=== PATIENT | male | born 1985 | race Caucasian/White ===

== ENCOUNTER 2022-10-29 16:11 | Outpatient (CLI) | payer OTHER, SELFPAY ==
--- NOTE | 2022-10-29 16:27 | XRR_ITS ---
PROCEDURE INFORMATION: Exam: XR Right Toe(s) Exam date and time: 10/29/2022 4:27 PM Age: 37 years old Clinical indication: Pain; Foot; Right; Additional info: Injury of right toe, initial encounter, pain TECHNIQUE: Imaging protocol: Radiologic exam of the Right toes. Views: Minimum 2 views. COMPARISON: No relevant prior studies available. FINDINGS: Bones/joints: Mild hallux valgus with a metatarsophalangeal joint angle of 26 degrees with mild 1st metatarsophalangeal joint osteoarthritis. Soft tissues: Normal. XR/XR toe RT min 2V [id number] IMPRESSION: 1. Negative for fracture or dislocation 2. Mild hallux valgus with a metatarsophalangeal joint angle of 26 degrees with mild 1st metatarsophalangeal joint osteoarthritis.
== END 2022-10-29 16:12 | disposition home or self-care (01) ==
PROVIDERS: PCP Nurse Practitioner Family; Visit Provider Nurse Practitioner Family
DX: S99.921A Unspecified injury of right foot, initial encounter (principal); X58.XXXA Exposure to other specified factors, initial encounter; M20.11 Hallux valgus (acquired), right foot
CPT/HCPCS: 73660

== ENCOUNTER 2025-05-13 23:27 | Emergency (ER) | payer OTHER, SELFPAY ==
--- OUTSIDE RECORDS SUMMARY | 2025-05-13 23:38 | XMS_ITS | Continuity of Care Document ---
Author Name [facility] Organization [facility] Care Team Providers Care Video Tape Editor Name Role Phone [facility] Unavailable Unavailable Problems Combined list of problems from Department of Defense and Veterans Affairs facilities. It does not include entries that were removed or entered in error. Problem Status Onset Date Problem Type Date of Resolution Comments Source visit for: single organ system exam psychiatric Active Condition DoD joint pain, localized in the knee Active Condition DoD groin (inguinal) pain left side Inactive Condition DoD DEPRESSION Active Condition ; rule ou t adjustment disorder; further discussion with SM reveals a possible link between arrival to [facility], current conflicts with peers, onset of nightmares, and worsening of depressiion which all began about one month ago. SM is able to relax by listening to music; he doesn;t want medications for sleep or mood since in [facility] and has to respond to commands at short notice. SM mainly benefits from reassurance about family concerns. he denies SI or HI; will arrange follow up with spec(91X) for supportive counseling, coping skills, and relaxation; call prn;he is not a safety risk. DoD SUPERFICIAL INJURY - NONVENOMOUS INSECT BITE OF HAND Inactive Condition ATARAX/PRE 10 MG 6DAY DoD CELLULITIS Active Condition DoD SKIN ABSCESS OF THE LEFT HAND Active Condition PT HAD SMALL SCAB ON THE TOP. OPENED THIS UP AND DRAINED A SMALL AMOUNT OF PUS. DoD Vaccines Prophylactic Need Inactive Condition DoD Vaccines Prophylactic Need Against Viral Diseases Active Condition DoD Vaccines Prophylactic Need Against Combinations Of Diseases Inactive Condition DoD Vaccines Prophylactic Need Against Bacterial Diseases Inactive Condition DoD visit for: services physical accession Inactive Condition DoD REFRACTIVE ERROR Active Condition DoD Allergies, Adverse Reactions, Alerts Combined list of allergies from Department of Defense and Veterans Affairs facilities. It does not include entries that were removed or entered in error. Substance Category Reaction Severity Reaction type Status Date Reported Comments Source NO OUTPUT FOR NCID [id number] Drug allergy (disorder) active 12/15/2006 [facility] Encounters Combined list of: 1) Encounters from Department of Veterans Affairs facilities going backup to the last 18 months, not all VA inpatient encounters are included; 2) Encounters from the Department of Defense facilities going backup to 280 months. Location Location Details Encounter Type Encounter Number Reason For Visit Attending Provider ADM Date DC Date Status Disposition Source [facility]) OUTPATIENT [id number] RONNIE BARAHONA Carmencita 07/29 Released w/o Limitations [facility]caiel nee) [facility] Post Immunizat ion) OUTPATIENT [id number] [facility] IMMUNIZ ATIONS GABYGABINOROMA STUART 07/31 Released w/o Limitations [facility] Post Immuniz ation) [facility] Immediate Care Clinic) OUTPATIENT [id number] 21 yo. pt. l hand NESTOR Faustin 10/27 Released w/o Limitations [facility] Immedia te Care [facility]) [facility] Immediate [facility]) OUTPATIENT [id number] 21yo,M, SIT,c/o ,left hand kmin g x2days CHRISTIANO SEGOVIA 10/27 Sick at Home/Quarter s [facility] Im[facility]) [facility]) OUTPATIENT [id number] knee /groin pain [place] 12/01 Released w/o Limitations [facility]) [facility] h([facility]) OUTPATIENT [id number] f/u left knee pain [place] O 12/09 Released with Work/Duty Limitations [facility]) Procedures Combined list of: 1) Procedures from Department of Veterans Affairs facilities going back up to thelast 18 months, not all VA non-surgical procedures are included; 2) All procedures from the Department of Defense facilities. Procedure Procedure Type Code Date Perfomer Comments Sour e Psychiatric Therapy Individual Approximately 45-50 Minutes Psychiatric Therapy Individual Approximately 45-50 Minutes [id number] 7 ARIELLE ABBOTT [facility] Psychiatric Evaluation Comprehensive Examination Psychiatric Evaluation Comprehensive Examination [id number] 7 MELISSA BHATIA [facility] Supervised Injection Intramuscular Supervised Injection Intramuscular 47947 7 CHRISTIANO SEGOVIA ROCEPHE 1000MG IM, given by ek @1905 hrs.pt,marily savage verifed x2 DoD Slings 7 CHRISTIANO SEGOVIA LEFT ARM [facility] Tdap Vaccine Tdap Vaccine 25506 6 [facility] Immunization Administration Each Additional Vaccine 6 [facility] Meningococcal Polysaccharide Vaccine (Active) Meningococcal Polysaccharide Vaccine (Active) 24610 6 [facility] Vaccines Viral Polio, Inactivated (Salk) Vaccines Viral Polio, Inactivated (Salk) 53845 6 [facility] Hepatitis A And Hepatitis B (Intramuscular Use) Adult Dosage Hepatitis A And Hepatitis B (Intramuscular Use) Adult Dosage 03607 6 [facility] Immunization Administration One Vaccine Immunization Administration One Vaccine 81827 6 [facility] Screening Test Of Visual Acuity, Quantitative, Bilateral Screening Test Of Visual Acuity, Quantitative, Bilateral 28097 6 RONNIE BARAHONA [facility] Determination Of Refractive State Determination Of Refractive State 12788 6 KATIE GRIGGS [facility] Spectacles Services Fitting Monofocals (Not For Aphakia) [facility] Fitting Monofocals (Not For Aphakia) 94078 6 KATIE GRIGGS [facility] INJECTION, CEFTRIAXONE SODIUM, PER 250 MG 7 [facility] HEPATITIS A AND HEPATITIS B VACCINE (HEPA-HEPB), ADULT DOSAGE, FOR INTRAMUSCULAR USE 6 [facility] SCREENING TEST OF VISUAL ACUITY, QUANTITATIVE, BILATERAL 6 [facility] INDIVIDUAL PSYCHOTHERAPY, INSIGHT ORIENTED, BEHAVIOR MODIFYING AND/OR SUPPORTIVE, IN AN OFFICE OR OUTPATIENT FACILITY, APPROXIMATELY 45 TO 50 MINUTES [id number] WITH THE PATIENT 7 [facility] PSYCHIATRIC DIAGNOSTIC INTERVIEW EXAMINATION 7 [facility] Social History Combined list of available smoking, tobacco, and other social history from Department of Defense and Veterans Affairs facilities. Social History Type Response Date Comment Sour e This section is an empty social history section. [facility]
--- OUTSIDE RECORDS SUMMARY | 2025-05-13 23:39 | XMS_ITS | Clinical Summary ---
Author Organization [facility] Address [address] [place] [address] Care Team Providers Care Sack Department Supervisor Name Role Phone Snehal Villa Primary Care Provider Allergies No known active allergies Medications blood sugar diagnostic StripIndications:T ype 2 diabetes mellitus without complication, without long-term current use of insulin ([facility]) Use to check blood sugar daily as needed 100 Each 3 02/23/20 24 Active Blood-Glucose MeterIndications:T ype 2 diabetes mellitus without complication, without long-term current use of insulin ([facility]) Use to check blood sugar daily as needed 1 Each 02/23/20 24 Active OneTouch Delica Plus Lancet 30 gauge Use to check blood sugar daily as needed 02/23/20 24 Active cholecalciferol, Vitamin D3, 50 mcg (2,000 unit) TabletIndications: Vitamin D deficiency Take 1 Tablet (2,000 Units) by mouth daily. 90 Tablet 3 02/25/20 24 Active Additional Information Patient not taking.Reported on 02/23/2025 semaglutide (Ozempic) 1 mg/dose (4 mg/3 mL) Pen InjectorIndication s:Type 2 diabetes mellitus without complication, without long-term current use of insulin ([facility]) Inject 1 mg by subcutaneous injection every 7 days. 9 mL 3 02/24/20 25 Active simvastatin (ZOCOR) 20 mg tabletIndications: Mixed hyperlipidemia Take 1 Tablet (20 mg) by mouth daily at bedtime. 100 Tablet 3 02/24/20 25 Active Active Problems Problem Noted Date Diagnosed Date Other fatigue 02/23/2025 ANGELI (obstructive sleep apnea) 02/23/2025 Severe episode of recurrent major depressive disorder, without psychotic features 02/23/2025 BESSY (generalized anxiety disorder) 02/23/2025 Eczema 05/25/2024 Mixed hyperlipidemia 10/29/2022 Type 2 diabetes mellitus wit hout complication, without long-term current use of insulin 10/29/2022 Vitamin D deficiency 10/29/2022 Morbid obesity with body mass index (BMI) of 40. 0 or higher 10/28/2022 Encounters Date Type Department Care Team Description 04/26/2025 External Device Data [facility]STRACTION Provider, Abstract 04/25/2025 External Device Data [facility] Provider, Abstract 03/28/2025 External Device Data [facility] Provider, Abstract 03/14/2025 External Device Data [facility]STRACTION Provider, Abstract 03/07/2025 External Device Data [facility] ABSTRACTION Provider, Abstract 03/01/2025 Orders Only [facility] [address] [place] [address] David Sawant FNP Morbid obesity with body mass index (BMI) of 40.0 or higher ([facility]) (Primary Dx); Other fatigue; ANGELI (obstructive sleep apnea) 02/27/2025 Results Follow-Up [facility] [address] [place] [address] David Sawant FNP HEMOGLOBIN A1C, CBC WITH DIFFERENTIAL, COMPREHENSIVE METABOLIC PANEL, Additional followed-up results: 7 02/23/2025 11:40 AM CDT Office Visit [facility] [address] [place] [address] David Sawant FNP Mixed hyperlipidemia (Primary Dx); Morbid obesity with body mass index (BMI) of 40.0 or higher ([facility]/HCC); Type 2 diabetes mellitus without complication, without long-term current use of insulin ([facility]); Vitamin D deficiency; Excessive sweating; Other fatigue; ANGELI (obstructive sleep apnea); Severe episode of recurrent major depressive disorder, without psychotic features (CMS/HCC); BESSY (generalized anxiety disorder) from Last 3 Months Social History Tobacco Use Types Packs/Day Years Used Date Smoking Tobacco: Never Smokeless Tobacco: Never Tobacco Cessation:Counseling Given: Not Answered Alcohol Use Standard Drinks/Week Comments Never 0 (1 standard drink = 0.6 oz pur e alcohol) Sex and Gender Information Value Date Recorded Sex Assigned at Not on file Legal Sex Male 8:11 AM CDT Gender Identity Not on file Sexual Orientation Not on file Last Filed Vital Signs Vital Sign Reading Time Taken Comments Blood Pressure 138/78 02/23/2025 11:31 AM CDT Pulse 90 02/23/2025 11:57 AM CDT Temperature 36.8 C (98.2 F) 02/23/2025 11:31 AM CDT Respiratory Rate 18 02/23/2025 11:31 AM CDT Oxygen Saturation 96% 02/23/2025 11:31 AM CDT Inhaled Oxygen Concentration - - Weight 123.8 kg (273 lb) 02/23/2025 11:31 AM CDT Height 175.3 cm (5' 9 ) 02/23/2025 11:31 AM CDT Body Mass Index 40.32 02/23/2025 11:31 AM CDT Plan of Treatment Health Maintenance Due Date Last Done Comments HPV VACCINES (1 - Male 3-dos e series) 1998 DIABETES ANNUAL FOOT EXAM 2001 DIABETES ANNUAL RETINAL EXAM 2001 DTAP/TDAP/TD VACCINES (1 - Tdap) 2002 HEPATITIS B VACCINES (1 of 3 - 19+ 3-dose series) 2002 COVID-19 Vaccine (3 - 2023-2 5 season) 2024 05/31/2021, 05/10/2021 Preventative Visit- Commercial 10/12/2024 10/28/2022 INFLUENZA VACCINE (#1) 2025 DIABETES HBA1C Q 6 MONTHS 08/26/20252024, 05/25/2024, 02/23/2024, Additional history exists DIABETES MICROALBUMIN ANNUAL SCREEN 02/23/2026 02/23/2025, 02/23/2024 DIABETES: A1C (Auto Order) 02/23/202602/23, 05/25/2024, 02/23/2024, Additional history exists LDL CHOLESTEROL ANNUAL 02/23/2026 , 05/25/2024, 02/23/2024, Additional history exists Procedures Procedure Name Priority Date/Time Associated Diagnosis Comments MICROALBUMIN/CREATININ E RATIO, RANDOM UR Routine 02/23/2025 3:15 PM CDT Type 2 diabetes mellitus without complication, without long-term current use of insulin (CMS/HCC) IRON, TIBC, AND PERCENT SATURATION Routine 02/23/2025 12:08 PM CDT Other fatigue VITAMIN B12 AND FOLATE Routine 12:08 PM CDT Other fatigue TESTOSTERONE FREE AND TOTAL Routine 02/23/2025 12:08 PM CDT Morbid obesity with body mass index (BMI) of 40.0 or higher (CMS/HCC) Excessive sweating Other fatigue VITAMIN D 25 HYDROXY Routine 02/23/2025 12:08 PM CDT Morbid obesity with body mass index (BMI) of 40.0 or higher (CMS/HCC) Vitamin D deficiency Excessive sweating Other fatigue LIPID PANEL Routine 02/23/2025 12:08 PM CDT Morbid obesity with body mass index (BMI) of 40.0 or higher (CMS/HCC) Type 2 diabetes mellitus without complication, without long-term current use of insulin (CMS/HCC) Mixed hyperlipidemia Other fatigue TSH Routine 02/23/2025 12:08 PM CDT Morbid obesity with body mass index (BMI) of 40.0 or higher (CMS/HCC) Type 2 diabetes mellitus without complication, without long-term current use of insulin (CMS/HCC) Mixed hyperlipidemia Excessive sweating Other fatigue COMPREHENSIVE METABOLIC PANEL Routine 02/23/2025 12:08 PM CDT Morbid obesity with body mass index (BMI) of 40.0 or higher (CMS/HCC) Type 2 diabetes mellitus without complication, without long-term current use of insulin (CMS/HCC) Mixed hyperlipidemia Excessive sweating Other fatigue CBC WITH DIFFERENTIAL Routine 02/23/2025 12:08 PM CDT Morbid obesity with body mass index (BMI) of 40.0 or higher (CMS/HCC) Type 2 diabetes mellitus without complication, without long-term current use of insulin (CMS/HCC) Mixed hyperlipidemia Excessive sweating Other fatigue HEMOGLOBIN A1C Routine 02/23/2025 12:08 PM CDT Morbid obesity with body mass index (BMI) of 40.0 or higher (CMS/HCC) Type 2 diabetes mellitus without complication, without long-term current use of insulin (CMS/HCC) Excessive sweating Other fatigue from Last 3 Months Results * (ABNORMAL) MICROALBUMIN/CREATININE RATIO, RANDOM UR (02/23/2025 3:15 PM CDT) CREATININE, URINE 468(H) 20 - 320 mg/dL [facility] Comment: Verified by repeat analysis. ALBUMIN, URINE 12.1 See Note: mg/dL [facility] Comment: Reference Range: Reference Range Not established ALB/CREAT RATIO, URINE 26 <30 mg/g creat [facility] Comment: The ADA defines abnormalities in albumin excretion as follows: Albuminuria Category Result (mg/g creatinine) Normal to Mildly increased <30 Moderately increased 30-299 Severely increased > OR = 300 The ADA recommends that at least two of three specimens collected within a 3-6 month period be abnormal before considering a patient to be within a diagnostic category. FASTING:UNKNOWN FASTING: UNKNOWN Test Performed at: [facility] [address] [place] [address] Tristan York MD Urine URINE SPECIMEN OBTAINED BY CLEAN CATCH PROCEDURE / Unknown 02/23/2025 3:15 PM CDT 02/24/2025 2:08 AM CDT us David Sawant DRIER TRANSFER CAR OPERATOR URINE ORDERABLES Final Res ult [facility] [phone] [facility] [address] [place] [address] * TESTOSTERONE FREE AND TOTAL (02/23/2025 12:08 PM CDT) Pathologist [facility] TESTOSTERONE 386 250 - 1100 ng/dL [facility] Comment: Men with clinically significant hypogonadal symptoms and testosterone values repeatedly in the range of the 200-300 ng/dL or less, may benefit from testosterone treatment after adequate risk and benefits counseling. For additional information, please refer to https://education.[employer]/faq/KXW656 (This link is being provided for informational/educational purposes only.) (Note) This test was developed and its analytical performance characteristics have been determined by [facility]. It has not been cleared or approved by the FDA. This assay has been validated pursuant to the CLIA regulations and is used for clinical purposes. TESTOSTERONE FREE 64.5 35.0 - 155.0 pg/mL [facility] Comment: (Note) This test was developed and its analytical performance characteristics have been determined by [facility]. It has not been cleared or approved by the FDA. This assay has been validated pursuant to the CLIA regulations and is used for clinical purposes. [facility] [address] [place] [address],[address] [place] [address] Candelaria Nunez MD, PhD FASTING:UNKNOWN FASTING: UNKNOWN Test Performed at: [facility] [address] [place] [address], [address] [place] [phone] Candelaria Nunez MD,PhD Blood 02/23/2025 12:0 8 PM CDT 02/23/2025 12:08 PM CDT David Sawant DRIER TRANSFER CAR OPERATOR CHEMISTRY ORDERABLES Final Result [facility] [phone] [facility] [employer] [address] [place] [address], [address] [place] [address] * VITAMIN B12 AND FOLATE (02/23/2025 12:08 PM CDT) Pathologist [facility] VITAMIN B12 577 200 - 1100 pg/mL [facility] FOLATE, SERUM 11.7 ng/mL [facility] Comment: Reference Range Low: <3.4 Borderline: 3.4-5.4 Normal: >5.4 FASTING:UNKNOWN FASTING: UNKNOWN Test Performed at: [facility] [address] [place] [address] MiriamRosalva York MD Blood 02/23/2025 12:0 8 PM CDT 02/23/2025 12:08 PM CDT David Pierson Sawant [facility] CHEMISTRY ORDERABLES Final Result Performing Organization Address [facility]/ZIP Co de Phone Number [facility] [phone] [facility] [address] [place] [address] * IRON, TIBC, AND PERCENT SATURATION (02/23/2025 12:08 PM CDT) Pathologist [facility] IRON 137 50 - 180 mcg/dL [facility] TIBC 357 250 - 425 mcg/dL (calc) [facility] IRON % SATURATION 38 20 - 48 % (calc) [facility] Comment: Test Performed at: [facility] [address] Tristan York MD Blood 02/23/2025 12:0 8 PM CDT 02/23/2025 12:08 PM CDT David Sawant [facility] CHEMISTRY ORDERABLES Final Result Performing Organization Address [facility] Co de Phone Number [facility] [phone] [facility] [address] [place] [phone] * (ABNORMAL) CBC WITH DIFFERENTIAL (02/23/2025 12:08 PM CDT) WBC 8.0 3.8 - 10.8 Thousand/u L [facility] RBC 6.08(H) 4.20 - 5.80 Million/uL [facility] HEMOGLOBIN 17.9(H) 13.2 - 17.1 g/dL [facility] HEMATOCRIT 55.1(H) 38.5 - 50.0 % [facility] MCV 90.6 80.0 - 100.0 fL [facility] MCH 29.4 27.0 - 33.0 pg [facility] MCHC 32.5 32.0 - 36.0 g/dL [facility] Comment: For adults, a slight decrease in the calculated MCHC value (in the range of 30 to 32 g/dL) is most likely not clinically significant; however, it should be interpreted with caution in correlation with other red cell parameters and the patient's clinical condition. RDW 14.3 11.0 - 15.0 % [facility] PLATELETS 263 140 - 400 Thousand/u L [facility] MPV 11.9 7.5 - 12.5 fL [facility] NEUTROPHIL ABSOLUTE 4,968 1,500 - 7,800 cells/uL [facility] LYMPHOCYTE ABSOLUTE 2,280 850 - 3,900 cells/uL [facility] MONOCYTE ABSOLUTE 464 200 - 950 cells/uL [facility] EOSINOPHIL ABSOLUTE 224 15 - 500 cells/uL [facility] BASOPHILS ABSOLUTE 64 0 - 200 cells/uL [facility] NEUTROPHIL 62.1 % [facility] LYMPHOCYTES 28.5 % [facility] MONOCYTE 5.8 % [facility] EOSINOPHILS 2.8 % [facility] BASOPHILS 0.8 % [facility] Comment: FASTING:UNKNOWN FASTING: UNKNOWN Test Performed at: [facility] [address] Tristan York MD Blood 02/23/2025 12:0 8 PM CDT 02/23/2025 12:08 PM CDT us David Sawant DRIER TRANSFER CAR OPERATOR HEMATOLOGY ORDERABLES Emily l Result [facility] [phone] [facility] [address] * (ABNORMAL) VITAMIN D 25 HYDROXY (02/23/2025 12:08 PM CDT) VITAMIN D, 25 OH, TOTAL 29(L) 30 - 100 ng/mL [facility] Comment: Vitamin D Status 25-OH Vitamin D: Deficiency: <20 ng/mL Insufficiency: 20 - 29 ng/mL Optimal: > or = 30 ng/mL For 25-OH Vitamin D testing on patients on D2-supplementation and patients for whom quantitation of D2 and D3 fractions is required, the [facility]) 25-OH VIT D, (D2,D3), LC/MS/MS is recommended: order code 00271 (patients >2yrs). See Note 1 Note 1 For additional information, please refer to http://education.[employer]/faq/VRZ398 (This link is being provided for informational/ educational purposes only.) FASTING:UNKNOWN FASTING: UNKNOWN Test Performed at: [facility] [address] Tristan York MD Blood 02/23/2025 12:0 8 PM CDT 02/23/2025 12:08 PM CDT David Sawant [facility] CHEMISTRY ORDERABLES Final Result [facility] [phone] [facility] [address] * TSH (02/23/2025 12:08 PM CDT) TSH 1.54 0.40 - 4.50 mIU/L [facility] Comment: Test Performed at: [facility] [address] Tristan York MD Blood 02/23/2025 12:0 8 PM CDT 02/23/2025 12:08 PM CDT David Sawant [facility] CHEMISTRY ORDERABLES Final Result [facility] [phone] [facility] [address] * HEMOGLOBIN A1C (02/23/2025 12:08 PM CDT) HEMOGLOBIN A1C 5.4 <5.7 % [facility] Comment: For the purpose of screening for the presence of diabetes: <5.7% Consistent with the absence of diabetes 5.7-6.4% Consistent with increased risk for diabetes (prediabetes) > or =6.5% Consistent with diabetes This assay result is consistent with a decreased risk of diabetes. Currently, no consensus exists regarding use of hemoglobin A1c for diagnosis of diabetes in children. According to [place] [employer] Association (ADA) guidelines, hemoglobin A1c <7.0% represents optimal control in non- diabetic patients. Different metrics may apply to specific patient populations. Standards of Medical Care in Diabetes(ADA). ESTIMATED AVERAGE GLUCOSE (MG/DL) 108 mg/dL [facility] ESTIMATED AVERAGE GLUCOSE (MMOL/L) 6.0 mmol/L [facility] Comment: FASTING:UNKNOWN FASTING: UNKNOWN Test Performed at: [facility] [id number] [place] [phone] Tristan York MD Blood 02/23/2025 12:0 8 PM CDT 02/23/2025 12:08 PM CDT David Sawant DRIER TRANSFER CAR OPERATOR CHEMISTRY ORDERABLES Final Result [facility] [phone] [facility] [address] * (ABNORMAL) LIPID PANEL (02/23/2025 12:08 PM CDT) CHOLESTEROL 195 <200 mg/dL [facility] HDL 35(L) > OR = 40 mg/dL [facility] TRIGLYCERIDE 82 <150 mg/dL [facility] LDL CALCULATED 141(H) mg/dL (calc) [facility] Comment: Reference range: <100 Desirable range <100 mg/dL for primary prevention; <70 mg/dL for patients with CHD or diabetic patients with > or = 2 CHD risk factors. LDL-C is now calculated using the Teodoro calculation, which is a validated novel method providing better accuracy than the Friedewald equation in the estimation of LDL-C. Stefan SS et al. ARTHUR. 2013;310(19): 1844-9555 (http://education.12B[employer]/faq/XVR851) CHOL/HDL RATIO 5.6(H) <5.0 (calc) [facility] NON-HDL CHOLESTEROL 160(H) <130 mg/dL (calc) [facility] Comment: For patients with diabetes plus 1 major ASCVD risk factor, treating to a non-HDL-C goal of <100 mg/dL (LDL-C of <70 mg/dL) is considered a therapeutic option. Test Performed at: [facility] [address] Tristan York MD Blood 02/23/2025 12:0 8 PM CDT 02/23/2025 12:08 PM CDT Jaspervaleriaany Sawant DRIER TRANSFER CAR OPERATOR CHEMISTRY ORDERABLES Final Result [facility] [phone] [facility] [address] * (ABNORMAL) COMPREHENSIVE METABOLIC PANEL (02/23/2025 12:08 PM CDT) GLUCOSE 80 65 - 99 mg/dL [facility] Comment: Fasting reference interval BUN 14 7 - 25 mg/dL [facility] CREATININE 0.97 0.60 - 1.29 mg/dL [facility] GFR 100 > OR = 60 mL/min/1. 73m2 [facility] BUN/CREAT RATIO SEE NOTE: 6 - 22 (calc) [facility] Comment: Not Reported: BUN and Creatinine are within reference range. SODIUM 139 135 - 146 mmol/L [facility] POTASSIUM 4.0 3.5 - 5.3 mmol/L [facility] CHLORIDE 103 98 - 110 mmol/L [facility] CO2 17(L) 20 - 32 mmol/L [facility] CALCIUM 10.2 8.6 - 10.3 mg/dL [facility] TOTAL PROTEIN 8.3(H) 6.1 - 8.1 g/dL [facility] ALBUMIN 5.2(H) 3.6 - 5.1 g/dL [facility] GLOBULIN 3.1 1.9 - 3.7 g/dL (calc) [facility] ALBUMIN/GLOBULIN RATIO 1.7 1.0 - 2.5 (calc) [facility] BILIRUBIN TOTAL 1.0 0.2 - 1.2 mg/dL [facility] ALKALINE PHOSPHATASE 87 36 - 130 U/L [facility] AST 27 10 - 40 U/L [facility] ALT 59(H) 9 - 46 U/L [facility] Comment: FASTING:UNKNOWN FASTING: UNKNOWN Test Performed at: [facility] [address] Tristan York MD Blood 02/23/2025 12:0 8 PM CDT 02/23/2025 12:08 PM CDT Jaspervaleriaany Sawant DRIER TRANSFER CAR OPERATOR CHEMISTRY ORDERABLES Final Result [facility] [phone] [facility] [address] from Last 3 Months Insurance [employer] [id number] Care Teams Sack Department Supervisor Relationship Specialty Start Date End Date Snehal Villa DO [address] [place] [address] PCP - General Family Practice 02/09/24
[2025-05-13 23:40] VITALS: BP 168/101; PULSE 106; RESP 17; TEMP 36.8; O2SAT 95; BMI 37.6
--- NOTE | 2025-05-13 23:51 | ECG_ITS ---
[facility] Date: 2025-[facility]13 Pat Name: Gagandeep Morel Department: Room: Gender: Male [employer] R12 Developer: : 1985 Requested By: Davion Kilgore Order Number: [id number] Adarsh MD: LUDIVINA VIEIRA Measurements Intervals [place] Rate: 105 P: 75 [place]: 147 QRS: 63 QRSD: 80 T: 55 QT: 334 QTc: 442 Interpretive Statements SINUS TACHYCARDIA NONSPECIFIC ST & T-WAVE ABNORMALITY ABNORMAL RHYTHM ECG No previous ECG available for comparison Electronically Signed On 05-15-2025 13:57:01 CDT by LUDIVINA VIEIRA [email or web address]
[2025-05-14 00:46] LABS: Hematocrit 49.9 % (37-53); Hemoglobin 17.00 g/dL (11.27-16.99); Mean Corpuscular HGB Conc 34.1 g/dL (30-55); Mean Corpuscular Hemoglobin 29.4 pg (27-33); Mean Corpuscular Volume 86.2 fl (82-101); Nucleated Red Blood Cells % 0 %; Platelet Count 241 10^3/cmm (157-399); Red Blood Count 5.79 10^6/uL (3.85-5.65); White Blood Count 9.70 10^3/uL (3.29-11.43)
[2025-05-14 01:00] VITALS: BP 143/106; PULSE 92; RESP 14; O2SAT 98
[2025-05-14 01:11] LABS: Troponin(5th) Baseline 9 ng/L (0-15)
[2025-05-14 01:18] LABS: Alanine Aminotransferase 34 U/L (0-41); Albumin Level 4.6 g/dL (3.5-5.2); Alkaline Phosphatase 97 U/L (40-130); Blood Urea Nitrogen 9 mg/dL (6-20); Calcium 9.5 mg/dL (8.5-10.5); Carbon Dioxide 25 mmol/L (22-29); Creatinine Clr Calc Pharmacy 120.7120; Globulin 3.0 g/dL (1.3-4.6); Glucose 135 mg/dL (65-115); NT Pro B Type Natriuretic Pept 60 pg/mL (0-125); Total Protein 7.6 g/dL (6.6-8.7)
[2025-05-14 01:22] LABS: Aspartate Amino Transferase 23 U/L (0-40)
[2025-05-14 01:39] LABS: Chloride 98 mmol/L (98-107); Osmolality Calculated 283 mOsm/kg (285-295); Sodium 136 mmol/L (136-145)
[2025-05-14 02:12] LABS: Anion Gap 16.7 (5-19); Potassium 3.7 mmol/L (3.5-5.1)
[2025-05-14 02:30] VITALS: BP 117/80; PULSE 98; RESP 18; O2SAT 92
[2025-05-14 02:38] LABS: Troponin 5 2HR 7.15 ng/L (0-15)
[2025-05-14 02:39] LABS: Troponin 5 2HR Delta -1.85 ABS# (0-10)
[2025-05-14 03:30] VITALS: BP 104/67; PULSE 74; RESP 16; O2SAT 95
[2025-05-14 04:30] VITALS: BP 136/92; PULSE 77; RESP 13; O2SAT 99
--- NOTE | 2025-05-14 04:45 | ED_ITS ---
HPI - Dizziness 2 General: Chief Complaint: Dizziness Stated Complaint: low blood sugar Time Seen by Provider: 05/14/25 00:53 History of Present Illness: HPI Narrative: HPI: Patient states that before bedtime he drank 6 Mountain Dew sodas and consumed a THC gummy. States that after this he became lightheaded and experiencing chest palpitations. States is never experiences chest palpitations in the past associated the THC gummy and he has taken these exact Gummies before in the past. Has not consumed that large amount of Mountain Dew previously with the Gummies. No fevers, sweats, chills. No present chest pain, shortness of breath, or lightheadedness in the department. Patient states he feels normal at this time. REVIEW OF SYSTEMS: 10 systems reviewed and otherwise unrema rkable except for those noted in HPI. PHYSCIAL EXAM: Triage vital signs reviewed Gen: A&O NAD HEENT: NCAT, EOMI, not icteric. External ears normal. No rhinorrhea. Moist mucous membranes. Neck: Supple, full range of motion, no observable masses, No meningeal sign. Lungs: No Respiratory distress. CV: Tachycardic, no edema. Abdomen: Soft, nondistended, No rebound tenderness. MSK: No joint swelling, no redness. Skin: No rashes, petechiae, lesions. Normal color per patient. Neuro: Normal Gait, Grossly intact. Psych: Appropriate for situation. PROCEDURES: EKG: Rate: Tachycardic Rhythm: Sinus [place]: Normal variant Intervals: Normal Ischemia: No STEMI criteria Related Data Allergies Allergy/AdvReac Type Severity Reaction Status Date / Time No Known Allergies Allergy Verified 05/13/25 23:40 Course 2 Vital Signs: Vital signs: Vital Signs Temperature 98.2 F 05/13/25 23:40 Pulse Rate 106 H 05/13/25 23:40 Respiratory Rate 17 05/13/25 23:40 Blood Pressure 168/101 05/13/25 23:40 Pulse Oximetry 95 05/13/25 23:40 Oxygen Delivery Me thod Room Air 05/13/25 23:40 MDM - Dizziness Medical Decision Making MEDICAL DECISION MAKING: Differential diagnoses considered but not limited to: Intermittent dysrhythmia, ACS, electrolyte derangement, toxidrome. Vitals nonactionable. Given history, examination, and pretest risk factors, and the patient with no active symptoms in the department, rule out life threats at this time. Patient has no active symptoms at time of discharge after negative delta troponin and nonischemic EKG. Feel patient's symptoms likely related to consumption of the THC and high amounts of caffeine and sugar. Advised patient on outpatient follow-up and reasons to return. DISPO: CONSTANTINO Kilgore MD Staff physician, [facility] [place] [phone] Lab Data 05/14/25 00:15 05/14/25 00:15 Laboratory Results WBC 9.70 10^3/uL (3.29-11.43) 05/14/25 00:15 RBC 5.79 10^6/uL (3.85-5.65) H 05/14/25 00:15 Hgb 17.00 g/dL (11.27-16.99) H 05/14/25 00:15 Hct 49.9 % (37-53) 05/14/25 00:15 MCV 86.2 fl (82-101) 05/14/25 00:15 MCH 29.4 pg (27-33) 05/14/25 00:15 MCHC 34.1 g/dL (30-55) 05/14/25 00:15 RDW 12.9 % (12.1-15.1) 05/14/25 00:15 Plt Count 241 10^3/cmm (157-399) 05/14/25 00:15 MPV 10.9 fL (7.4-10.4) H 05/14/25 00:15 Neut % (Auto) 65.5 % 05/14/25 00:15 Lymph % (Auto) 26.2 % 05/14/25 00:15 [place] % (Auto) 5.7 % 05/14/25 00:15 Eos % (Auto) 1.9 % 05/14/25 00:15 Baso % (Auto) 0.5 % 05/14/25 00:15 Neut # (Auto) 6.36 10^3/uL (1.8-7.7) 05/14/25 00:15 Lymph # (Auto) 2.5 10^3/uL (0.8-4.8) 05/14/25 00:15 [place] # (Auto) 0.6 10^3/uL (0.2-0.9) 05/14/25 00:15 Eos # (Auto) 0.2 10^3/uL (0.0-0.8) 05/14/25 00:15 Baso # (Auto) 0.1 10^3/uL (0.0-0.1) 05/14/25 00:15 Nucleated RBC % (auto) 0 % 05/14/25 00:15 Nucleated RBCs # 0.0 /100WBC 05/14/25 00:15 Sodium 136 mmol/L (136-145) 05/14/25 00:15 Potassium 3.7 mmol/L (3.5-5.1) 05/14/25 00:15 Chloride 98 mmol/L (98-107) 05/14/25 00:15 Carbon Dioxide 25 mmol/L (22-29) 05/14/25 00:15 Anion Gap 16.7 (5-19) 05/14/25 00:15 BUN 9 mg/dL (6-20) 05/14/25 00:15 Creatinine 1.0 mg/dL (0.7-1.2) 05/14/25 00:15 GFR Calculation 81.9 mL/min (90-130) L 05/14/25 00:15 Glucose 135 mg/dL (65-115) H 05/14/25 00:15 POC Glucose 98 mg/dL (70-110) 05/13/25 23:38 Calculated Osmolality 283 mOsm/kg (285-295) L 05/14/25 00:15 Calcium 9.5 mg/dL (8.5-10.5) 05/14/25 00:15 Total Bilirubin 0.7 mg/dL (0.15-1.2) 05/14/25 00:15 AST 23 U/L (0-40) 05/14/25 00:15 ALT 34 U/L (0-41) 05/14/25 00:15 Alkaline Phosphatase 97 U/L (40-130) 05/14/25 00:15 Creatine Kinase 88 U/L (39-308) 05/14/25 00:15 Troponin T Baseline 9 ng/L (0-15) 05/14/25 00:15 Troponin T 120 Minute 7.15 ng/L (0-15) 05/14/25 02:09 Delta Troponin T -1.85 ABS# (0-10) L 05/14/25 02:09 NT-Pro-B Natriuret Pep 60 pg/mL (0-125) 05/14/25 00:15 Total Protein 7.6 g/dL (6.6-8.7) 05/14/25 00:15 Albumin 4.6 g/dL (3.5-5.2) 05/14/25 00:15 Globulin 3.0 g/dL (1.3-4.6) 05/14/25 00:15 No radiology studies performed this visit Discharge Plan Discharge Patient Disposition: Home Clinical Impression: Dizziness Condition: Stable Discharge Orders: Discharge ED (Routine); Ordered 05/14/25 Ordered By: Davion Kilgore Referrals: David Sawant FNP [Primary Care Provider] Discharge Diet: Usual diet Discharge Activity: Resume usual activity Patient Instructions: Opioid Safety, Pain Management, Patient Portal & Jenna Instructions Activity Restrictions/Additional Instructions: It has been a pleasure caring for you in the emergency department. Please ensure that you follow-up with your primary care physician for review of all data obtained during this encounter including any incidental findings and laboratory values. Keep in mind that if your condition worsens in any way, I strongly recommend that you return to the emergency department for repeat evaluation immediately. Print Language: Faroese Coding Level of Care Code ED Wood Hacker for Samuel Spencer
== END 2025-05-14 05:01 | disposition home or self-care (01) ==
PROVIDERS: Emergency Provider General Practice; PCP Nurse Practitioner Family
DX: R42 Dizziness and giddiness (principal); F12.90 Cannabis use, unspecified, uncomplicated
CPT/HCPCS: 36415; 36416; 80053; 82550; 82962; 83880; 84484; 85025; 93005; 99284

== ENCOUNTER 2025-06-22 21:00 | Emergency (ER) | payer OTHER, SELFPAY ==
--- OUTSIDE RECORDS SUMMARY | 2025-06-16 11:00 | XMS_ITS | Encounter Summary ---
Author Organization [facility] Address [address] [place] [address] Care Team Providers Care Safety Patrol Officer Name Role Phone Snehal Villa DO Primary Care Provider [phone] Reason for Visit * Reason Comments Hospital Follow Up Surgery with ENT on 06/13/25-- Uvulopalatopharyngoplasty and Tonsillectomy * Eval and Treat (Routine) - Closed Specialty Diagnoses / Procedures Referred By Betty crocker Referred To Contact Diagnoses S/P tonsillectomy Procedures ME OFFICE/OUTPATIENT ESTABLISHED MOD MDM 30 MIN ME OFFICE/OUTPATIENT NEW MODERATE MDM 45 MINUTES Maribell Aviles DO [address] [place] [address] [address] Phone: tel: fax: Referral ID Status Reason Start Date Expiration Date Visits Re quested Visits Authorized [id number] Closed 06/14/2025 06/14/2026 1 1 Encounter Details Date Type Department Care Team (Late st Contact Info) Description 06/16/2025 11:00 AM CDT Office Visit [facility] [place] [address] [place] [address] January, RECEIVING TEAM MEMBER [address] [place] [address] S/P UPPP (uvulopalatopharyngop lasty) (Primary Dx) Social History Tobacco Use Types Packs/Day Years Used Date Smoking Tobacco: Never Smokeless Tobacco: Never Alcohol Use Standard Drinks/Week Comments Never 0 (1 standard drink = 0.6 oz pur e alcohol) Feeling Safe Answer Date Recorded Are you in a relationship wi th someone who hurts you emotionally and/or physically? No 06/13/2025 Food Insecurity Answer Date Recorded Patient needs follow up regardin 06/07/2025 Transportation Needs Answer Date Record ed Patient needs follow up regardin 06/07/2025 Utility Needs Answer Date Recorded Patient needs follow up regardin 06/07/2025 Sex and Gender Information Value Date Recorded Sex Assigned at Not on file Legal Sex Male 8:11 AM CDT Gender Identity Not on file Sexual Orientation Not on file documented as of this encounter Last Filed Vital Signs Vital Sign Reading Time Taken Comments Blood Pressure 124/86 06/16/2025 11:02 AM CDT Pulse 115 06/16/2025 10:58 AM CDT Temperature 36.9 C (98.4 F) 06/16/2025 10:58 AM CDT Respiratory Rate - - Oxygen Saturation 94% 06/16/2025 10:58 AM CDT Inhaled Oxygen Concentration - - Weight 119.3 kg (263 lb) 06/16/2025 10:58 AM CDT Height 175.3 cm (5' 9 ) 06/16/2025 10:58 AM CDT stated Body Mass Index 38.84 06/16/2025 10:58 AM CDT documented in this encounter Progress Notes * Cunningham, January, RECEIVING TEAM MEMBER - 06/16/2025 11:14 AM CDT Chief Complaint Patient presents with Hospital Follow Up Surgery with ENT on 06/13/25-- Uvulopalatopharyngoplasty and Tonsillectomy History of Present Illness The patient is a 40-year-old male who presents to the clinic for a hospital follow-up. He underwenta tonsillectomy and uvulopalatopharyngoplasty on 06/13/2025, which required an overnight stay in the hospital. The procedures were performed to address his sleep apnea, which was causing a 65% obstruction of his airway. He reports difficulty in speaking post-surgery. He is experiencing pain but is managing it. His appetite is poor, and he finds it challenging to eat and drink, although he has been making efforts to stay hydrated. He has not experienced any bleeding or chills but had a borderline fever of 101 degrees on 06/14/2025, the day after his discharge from the hospital. He has been monitoring his temperature closely and rinsing his mouth with peroxide. He has been alternating betweenChildren's Tylenol 15 mL and hydrocodone every 4 hours for pain management. 10 point review of systems is otherwise negative except as mentioned above. Past Medical History: Diagnosis Date Diabetes mellitus (CMS/HCC) Obstructive sleep apnea Sleep apnea Current Outpatient Medications Medication Instructions HYDROcodone-acetaminophen 2.5-108 mg/5 mL Solution 10-15 mL, Oral, EVERY 4 HOURS Past Surgical History: Procedure Laterality Date HX NOSE SURGERY HX REFRACTIVE SURGERY HX SINUS SURGERY ME PALATOPHARYNGOPLASTY N/A 06/13/2025 UVULOPHARYNGOPALATOPLASTY performed by Maribell Aviles DO at [facility] MAIN OR Past social, family, and medical history reviewed. BP 124/86 Pulse (!) 115 Temp 98.4 ??F (36.9 ??C) (Temporal) Ht 5' 9 (1.753 m) Comment: stated Wt 119.3 kg (263 lb) SpO2 94% BMI 38.84 kg/m?? Physical Exam Physical Exam Constitutional: Appearance: Normal appearance. HENT: Head: Normocephalic. Right Ear: Tympanic membrane and ear canal normal. Left Ear: Tympanic membrane and ear canal normal. Mouth/Throat: Mouth: Mucous membranes are moist. Pharynx: Pharyngeal swelling present. Comments: Tonsil beds with yellowish scabs. Slight palatal and tongue swelling. No active bleeding observed. Eyes: Conjunctiva/sclera: Conjunctivae normal. Pupils: Pupils are equal, round, and reactive to light. Cardiovascular: Rate and Rhythm: Normal rate and regular rhythm. Pulses: Normal pulses. Heart sounds: Normal heart sounds. Pulmonary: Effort: Pulmonary effort is normal. Breath sounds: Normal breath sounds. Abdominal: General: Bowel sounds are normal. Palpations: Abdomen is soft. Musculoskeletal: General: Normal range of motion. Skin: General: Skin is warm and dry. Neurological: General: No focal deficit present. Mental Status: He is alert. Psychiatric: Mood and Affect: Mood normal. Assessment & Plan 1. Postoperative status following tonsillectomy and uvulopalatopharyngoplasty: - He reports significant pain and difficulty eating and drinking, although he is managing to stay hydrated. - He experienced a borderline fever of 101??F the day after returning home from the hospital but has not had any fever since then. - He is advised to continue monitoring for any signs of infection, such as fever, increased pain, or bleeding, and to seek immediate medical attention at the ER if these symptoms occur. Basic laboratory tests will be conducted today. - He has been alternating between hydrocodone and Children's Tylenol 15 mL for pain management. Follow-up: He will follow up next Thursday. OZZIE Richardson The author of this note, patient (or authorized data entry representative), and all other persons present consent to the audio recording of this visit for charting documentation purposes. This note was automatically generated, edited by a Quality Braille Translator, and finalized by JOE Richardson. documented in this encounter Miscellaneous Notes * Patient Instructions - China Glass, [facility] - 06/16/2025 10:54 AM CDT What is Diabetic Retinopathy? Diabetic retinopathy is the most common eye disease in patients with diabetes and a leading cause of blindness in [place] adults. It is caused by changes in the blood vessels in the light-sensitive tissue at the back of the eyeball, called the retina. A healthy retina is necessary for good vision. In some people with diabetic retinopathy, blood vessels may swell and leak fluid. In other people, abnormal new blood vessels grow on the surface of theretina. Diabetic retinopathy usually affects both eyes. If you have diabetic retinopathy, at first you may not notice changes to your vision. But over time, diabetic retinopathy can get worse and cause vision loss. Fortunately, vision loss can be prevented if diabetic retinopathy is found and treated early. Who is at risk for diabetic retinopathy? All people with diabetes - both type 1 and type 2 - are at risk. That's why everyone with diabetes should get a complete dilated eye exam at least once a year. (A dilated exam uses eye drops to open the pupil for a better view of the retina.) What can I do to protect my vision? Get a complete dilated eye exam at least once a year and remember to ask your outsole splicer or heating unit installer to send a report of their findings to your Primary Care Provider (or give you a report that you can take to your PCP.) Better control of blood sugar levels slows the start and worsening of retinopathy. People with diabetes who keep their blood sugar levels as close to normal as possible also have much less kidney andnerve disease. Better control also reduces the need for sight-saving laser surgery. Other studies have shown that controlling elevated blood pressure and cholesterol can reduce the risk of vision loss. Controlling these will help your overall health as well as help protect your vision. Facts about diabetic retinopathy: You can develop diabetic retinopathy and still be able to see fine. However, you are at high risk for vision loss. Your sales and marketing professional can tell if you have diabetic retinopathy. Whether or not you have symptoms, early detection and timely treatment can prevent vision loss. People with the most severe type of retinopathy, called proliferative retinopathy. can reduce theirrisk of blindness by 95 percent with timely treatment and appropriate follow-up care. The longer someone has diabetes, the more likely he or she will get diabetic retinopathy. Between 40 to 45 percent of Americans diagnosed with diabetes have some stage of diabetic retinopathy. If you have diabetic retinopathy, your doctor can recommend treatment to help prevent it from getting worse. documented in this encounter Plan of Treatment Upcoming Encounters Date Type Department Care Team (Late st Contact Info) Description 06/23/2025 3:00 PM CDT Office Visit [facility] [place] [address] [place] [phone] Cunninghamjanuary, RECEIVING TEAM MEMBER [address] [place] [phone] 09/14/2025 8:30 AM MANAGER GRANT Office Visit [facility] [address] [place] [address] [place] [address] [place] [address] Maribell Aviles DO [address] [place] [address] [place] [address] documented as of this encounter Procedures Procedure Name Priority Date/Time Associated Diagnosis Comments CBC WITH DIFFERENTIAL Routine 06/16/2025 11:30 AM CDT S/P UPPP (uvulopalatopharyn goplasty) COMPREHENSIVE METABOLIC PANEL Routine 06/16/2025 11:30 AM CDT S/P UPPP (uvulopalatopharyn goplasty) documented in this encounter Results * (ABNORMAL) COMPREHENSIVE METABOLIC PANEL (06/16/2025 11:30 AM CDT) GLUCOSE 91 65 - 99 mg/dL [facility] Comment: Fasting reference interval BUN 12 7 - 25 mg/dL [facility] CREATININE 0.78 0.60 - 1.29 mg/dL [facility] GFR 114 > OR = 60 mL/min/1. 73m2 [facility] BUN/CREAT RATIO SEE NOTE: 6 - 22 (calc) [facility] Comment: Not Reported: BUN and Creatinine are within reference range. SODIUM 137 135 - 146 mmol/L [facility] POTASSIUM 3.3(L) 3.5 - 5.3 mmol/L [facility] CHLORIDE 102 98 - 110 mmol/L [facility] CO2 23 20 - 32 mmol/L [facility] CALCIUM 9.5 8.6 - 10.3 mg/dL [facility] TOTAL PROTEIN 7.3 6.1 - 8.1 g/dL [facility] ALBUMIN 4.4 3.6 - 5.1 g/dL [facility] GLOBULIN 2.9 1.9 - 3.7 g/dL (calc) [facility] ALBUMIN/GLOBULIN RATIO 1.5 1.0 - 2.5 (calc) [facility] BILIRUBIN TOTAL 1.3(H) 0.2 - 1.2 mg/dL [facility] ALKALINE PHOSPHATASE 70 36 - 130 U/L [facility] AST 14 10 - 40 U/L [facility] ALT 20 9 - 46 U/L [facility] Comment: Test Performed at: [facility] [id number] [address] [address] Tristan York MD Blood 06/16/2025 11:3 0 AM CDT 06/17/2025 3:44 AM CDT January RECEIVING TEAM MEMBER CHEMISTRY ORDERABLES Final Resul t [facility] [phone] [employer] [address] [facility] [place] [address] * (ABNORMAL) CBC WITH DIFFERENTIAL (06/16/2025 11:30 AM CDT) WBC 11.1(H) 3.8 - 10.8 Thousand/u L [facility] RBC 5.54 4.20 - 5.80 Million/uL [facility] HEMOGLOBIN 16.7 13.2 - 17.1 g/dL [facility] HEMATOCRIT 49.1 38.5 - 50.0 % [facility] MCV 88.6 80.0 - 100.0 fL [facility] MCH 30.1 27.0 - 33.0 pg [facility] MCHC 34.0 32.0 - 36.0 g/dL [facility] Comment: For adults, a slight decrease in the calculated MCHC value (in the range of 30 to 32 g/dL) is most likely not clinically significant; however, it should be interpreted with caution in correlation with other red cell parameters and the patient's clinical condition. RDW 13.0 11.0 - 15.0 % [facility] PLATELETS 230 140 - 400 Thousand/u L [facility] MPV 11.6 7.5 - 12.5 fL [facility] NEUTROPHIL ABSOLUTE 7,870(H) 1,500 - 7,800 cells/uL [facility] LYMPHOCYTE ABSOLUTE 2,142 850 - 3,900 cells/uL [facility] MONOCYTE ABSOLUTE 722 200 - 950 cells/uL [facility] EOSINOPHIL ABSOLUTE 311 15 - 500 cells/uL [facility] BASOPHILS ABSOLUTE 56 0 - 200 cells/uL [facility] NEUTROPHIL 70.9 % [facility] LYMPHOCYTES 19.3 % [facility] MONOCYTE 6.5 % [facility] EOSINOPHILS 2.8 % [facility] BASOPHILS 0.5 % [facility] Comment: Test Performed at: [facility] [place] [place] [address] [place] [address] Tristan York MD Blood 06/16/2025 11:3 0 AM CDT 06/17/2025 3:44 AM CDT January RECEIVING TEAM MEMBER HEMATOLOGY ORDERABLES Final Resu lt [facility] [phone] [facility] [place] [address] [place] [address] documented in this encounter Visit Diagnoses Diagnosis S/P UPPP (uvulopalatopharyngoplasty)- Primary Other postprocedural status documented in this encounter Additional Health Concerns Assessment Noted Time PHQ-9 Depression Total Score: 6 02/24/20 25 11:31 AM CDT documented as of this encounter Care Teams Safety Patrol Officer Relationship Specialty Start Date End Date Snehal Villa DO [address] [place] [address] PCP - General Family Practice 02/09/24 documented as of this encounter
[2025-06-22 21:04] VITALS: BP 126/89; PULSE 129; RESP 18; TEMP 36.9; O2SAT 97; BMI 36.9
--- OUTSIDE RECORDS SUMMARY | 2025-06-22 21:07 | XMS_ITS | Clinical Summary ---
Author Organization [facility] Address [address] [place] [address] Care Team Providers Care Cutting Table Operator First Name Role Phone Daisy, Snehal L DO Primary Care Provider Allergies No known active allergies Medications HYDROcodone-aceta minophen 2.5-108 mg/5 mL SolutionIndicatio ns:S/P tonsillectomy Take 10-15 mL by mouth every 4 hours. Max Daily Amount: 90 mL 500 mL 06/13/20 25 10:13 AM CDT 025 Active potassium CHLORIDE (KAYCIEL) 20 mEq/15 mL solutionIndicatio ns:Hypokalemia Take 15 mL (20 mEq) by mouth daily for 10 days. 150 mL 025 2024 Active blood sugar diagnostic StripIndications: Type 2 diabetes mellitus without complication, without long-term current use of insulin ([facility]) Use to check blood sugar daily as needed 100 Each 3 024 2024 Discontinued Blood-Glucose MeterIndications: Type 2 diabetes mellitus without complication, without long-term current use of insulin ([facility]) Use to check blood sugar daily as needed 1 Each 024 2024 Discontinued OneTouch Delica Plus Lancet 30 gauge Use to check blood sugar daily as needed 024 2024 Discontinued cholecalciferol, Vitamin D3, 50 mcg (2,000 unit) TabletIndications :Vitamin D deficiency Take 1 Tablet (2,000 Units) by mouth daily. 90 Tablet 3 024 2024 Discontinued semaglutide (Ozempic) 1 mg/dose (4 mg/3 mL) Pen InjectorIndicatio ns:Type 2 diabetes mellitus without complication, without long-term current use of insulin (CMS/HCC) Inject 1 mg by subcutaneous injection every 7 days. 9 mL 3 025 2024 Discontinued simvastatin (ZOCOR) 20 mg tabletIndications :Mixed hyperlipidemia Take 1 Tablet (20 mg) by mouth daily at bedtime. 100 Tablet 3 025 2024 Discontinued Active Problems Problem Noted Date Diagnosed Date Family history of ASCVD (art eriosclerotic cardiovascular disease) 05/16/2025 Other fatigue 02/23/2025 ANGELI (obstructive sleep apnea) [...] Encounters Date Type Department Care Team Description 06/22/2025 Telephone [facility] [address] [facility] [phone] David Sawant FNP Primary Care Outreach (Calling to see if pt has heard from [facility] in regards to scheduling his stress test Heidi Reid, 06/22/2025 2:15 PM///) 06/20/2025 External Device Data STL ABSTRACTION Provider, Abstract 06/19/2025 Results Follow-Up [facility] [address] [place] [phone] Marisa MariliaJOE COMPREHENSIVE METABOLIC PANEL, CBC WITH DIFFERENTIAL 06/16/2025 11:00 AM CDT Office Visit [facility] [address] [facility] [phone] Marilia Cunningham FNP S/P UPPP (uvulopalatopharyngoplasty) (Primary Dx) 06/13/2025 7:35 AM CDT Anesthesia Event [facility] Operating Room [address] [place] [address] Eriberto Duggan MD Le, Andrew N, AA 06/13/2025 7:20 AM CDT - 06/13/2025 9:12 AM CDT Surgery [facility] Operating Room [address] [place] [address] Maribell Aviles DO UVULOPHARYNGOPALATOPLASTY 06/13/2025 5:58 AM CDT - 06/14/2025 12:51 PM CDT Hospital Encounter [facility] 3B Surgical [address] [place] [address] Maribell Aviles DO Obstructive sleep apnea Discharge Disposition: Home or Self Care 06/13/2025 Travel 06/05/2025 8:15 AM CDT Office Visit [facility] [address] [place] [phone] Maribell Aviles DO Obstructive sleep apnea (Primary Dx); Tonsillar hypertrophy; Uvular hypertrophy; Chronic tonsillitis 06/05/2025 Orders Only [facility] [address] [place] [phone] Maribell Aviles DO 05/30/2025 External Device Data STL ABSTRACTION Provider, Abstract 05/18/2025 Orders Only [facility] HIM [address] [place] [phone] Provider, Abstract 05/16/2025 2:40 PM CDT Office Visit [facility] [place] [address] [place] [phone] David Sawant, JOE Heart palpitations (Primary Dx); Atypical chest pain; Family history of ASCVD (arteriosclerotic cardiovascular disease); MÉNDEZ (dyspnea on exertion) 04/26/2025 External Device Data STL ABSTRACTION Provider, Abstract 04/25/2025 External Device Data STL ABSTRACTION Provider, Abstract 03/28/2025 External Device Data STL ABSTRACTION Provider, Abstract from Last 3 Months Family History Medical History Relation Name Comments No Known Problems Father No Known Problems Mother Relation Name Status Comments Father Alive Mother Alive Social History Tobacco Use Types Packs/Day Years [...] F) 06/16/2025 10:58 AM CDT Respiratory Rate 18 06/14/2025 8:35 AM CDT Oxygen Saturation 94% 06/16/2025 10:58 AM CDT Inhaled Oxygen Concentration - - Weight 119.3 kg (263 lb) 06/16/2025 10:58 AM CDT Height 175.3 cm (5' 9 ) 06/16/2025 10:58 AM CDT stated Body Mass Index 38.84 06/16/2025 10:58 AM CDT Plan of Treatment Upcoming Encounters Date Type Department Care Team (Late st Contact Info) Description 06/23/2025 3:00 PM CDT Office Visit [facility] [place] [address] [place] [address] January, [facility] [address] [place] [address] 09/14/2025 8:30 AM RADIOLOGIC TECHNOLOGY TEACHER Office Visit [facility] [address] [place] [address] Maribell Aviles DO [address] [place] [address] Health Maintenance Due Date Last Done Comments DIABETES ANNUAL FOOT EXAM 2001 DIABETES ANNUAL RETINAL EXAM 2001 DTAP/TDAP/TD VACCINES (1 - Tdap) 2002 HEPATITIS B VACCINES (1 of 3 - 19+ 3-dose series) 2002 HPV VACCINES (1 - 3-dose SCD M series) 2010 Preventative Visit- Commercial 10/12/2024 10/28/2022 INFLUENZA VACCINE (#1) 2025 COVID-19 Vaccine (3 - 2024-2 6 season) 2025 05/31/2021, 05/10/2021 DIABETES HBA1C Q 6 MONTHS 08/26/20252024, 05/25/2024, 02/23/2024, Additional history exists DIABETES MICROALBUMIN ANNUAL SCREEN 02/23/2026 02/23/2025, 02/23/2024 DIABETES: A1C (Auto Order) 02/23/202602/23, 05/25/2024, 02/23/2024, Additional history exists LDL CHOLESTEROL ANNUAL 02/23/2026 , 05/25/2024, 02/23/2024, Additional history exists Procedures Procedure Name Priority Date/Time Associated Diagnosis Comments CBC WITH DIFFERENTIAL Routine 06/16/2025 11:30 AM CDT S/P UPPP (uvulopalatophary ngoplasty) COMPREHENSIVE METABOLIC PANEL Routine 06/16/2025 11:30 AM CDT S/P UPPP (uvulopalatophary ngoplasty) TELEMETRY REPORT 06/15/2025 3:12 AM CDT POC GLUCOSE Routine 06/13/2025 8:47 AM CDT ME ANES INSERT ENDOTRACHEAL AIRWAY Routine 06/13/2025 7:57 AM CDT PATHOLOGY Pathology 06/13/2025 7:54 AM CDT Obstructive sleep apnea Tonsillar hypertrophy Uvular hypertrophy ME PALATOPHARYNGOPLASTY 06/13/20 25 7:20 AM CDT Obstructive sleep apnea Tonsillar hypertrophy Uvular hypertrophy EKG 12-LEAD Routine 06/13/2025 7:10 AM CDT BASIC METABOLIC PANEL Stat 06/13/2025 6:55 AM CDT COMPREHENSIVE METABOLIC PANEL Routine 05/14/2025 3:20 PM CDT MICROALBUMIN/CREATININE RATIO, RANDOM UR Routine 02/23/2025 3:15 PM CDT Type 2 diabetes mellitus without complication, without long-term current use of insulin (CMS/HCC) LIPID PANEL Routine 02/23/2025 12:08 PM CDT Morbid obesity with body mass index (BMI) of 40.0 or higher (CMS/HCC) Type 2 diabetes mellitus without complication, without long-term current use of insulin (CMS/HCC) Mixed hyperlipidemia Other fatigue HEMOGLOBIN A1C Routine 02/23/2025 12:08 PM CDT Morbid obesity with body mass index (BMI) of 40.0 or higher (CMS/HCC) Type 2 diabetes mellitus without complication, without long-term current use of insulin (CMS/HCC) Excessive sweating Other fatigue from Last 3 Months or Most Recently Relevant to Health Maintenance Results * (ABNORMAL) CBC WITH DIFFERENTIAL (06/16/2025 11:30 [...] [facility] Comment: Test Performed at: [place] [address] [phone] Tristan York MD Blood 06/16/2025 11:3 0 AM CDT 06/17/2025 3:44 AM CDT January SENIOR HEALTH PHYSICS TECHNICIAN HEMATOLOGY ORDERABLES Final Resu lt [facility] [phone] [facility] [address] [phone] * (ABNORMAL) COMPREHENSIVE METABOLIC PANEL (06/16/2025 11:30 AM CDT) Only the most recent of2 resultswithin the time period is included. GLUCOSE 91 65 - 99 mg/dL [facility] [...] [facility] Comment: Test Performed at: [place] [address] [address] Tristan York MD Blood 06/16/2025 11:3 0 AM CDT 06/17/2025 3:44 AM CDT January SENIOR HEALTH PHYSICS TECHNICIAN CHEMISTRY ORDERABLES Final Resul t Performing Organization Address City/[facility]/ZIP Co de Phone Number [facility] [phone] [facility] [address] [address] [address] * TELEMETRY REPORT (06/15/2025 3:12 AM CDT) Provider Scanning ECG ORDERABLES Final Result * POC GLUCOSE (06/13/2025 8:47 AM CDT) [facility] GLUCOSE POC 90 74 - 99 mg/dL 06/13/2025 8:47 AM CDT [facility] SPECIMEN SOURCE, GLUCOSE POC Capillary 06/13/2025 8:47 AM CDT [facility] Blood, whole 06/13/2025 8:47 AM CDT 06/13/2025 8:57 AM CDT Maribell Aviles DO POINT OF CARE TESTING Final Re sult Performing Organization Address [facility]/ZIP Co de Phone Number [facility] CLIA # [id number] [address] [place] [address] * ME ANES INSERT ENDOTRACHEAL AIRWAY (06/13/2025 7:57 AM CDT) Narrative Owen Kemp AA - 06/13/2025 7:57 AM CDT Owen Kemp AA 06/13/2025 7:57 AM Airway Date/Time: 06/13/2025 7:57 AM Location: OR Plan: routine intubation Patient Identity Confirmed by: Verbally with patient and armband Staffing Performed: EXPLOSIVE ORDNANCE DISPOSAL MANAGER/CAA Authorized by: Eriberto Duggan MD Performed by: Owen Kemp AA Indications and Patient Condition: Indications for Airway Management: Anesthesia Sedation Level: general anesthesia Preoxygenated: yes Patient Position: Sniffing Plan to extubate at end of case: Yes Final Airway Details: Final Airway Type: Endotracheal airway ETT Cuffed: Yes Technique Used for Successful ETT Placement: Video laryngoscopy Devices/Methods Used in Placement: Intubating stylet Blade Size: 4 Insertion Site: Oral ETT Size (mm): 8.0 Video Laryngoscopy Devices: Messer Measured from: Lips ETT to Lips (cm): 23 Tube secured with: Tape Placement Verified by: auscultation, end tidal CO2 and chest rise Cormack-Lehane Classification: Grade IIa - partial view of glottis Number of Attempts at Approach: 1 Additional Procedure Information: atraumatic and dentition unchanged Eriberto Duggan MD PROCEDURE/MINOR SURGICAL ORDERA BLES Final Result * PATHOLOGY (06/13/2025 7:54 AM CDT) CASE REPORT Surgical Pathology Report Case: [id number] Authorizing Provider: Maribell Aviles DO Collected: 06/13/2025 07:54 AM Ordering Location: [facility] Received: 06/13/2025 11:08 AM Operating Room Pathologist: Andrea Salmon MD Specimens: A) - Tonsil, right B) - Tonsil, left 7:15 AM CDT [facility] FINAL DIAGNOSIS A. Tonsil, right, excision - tonsil weighing 4.2 grams, with reactive lymphoid hyperplasia and numerous Actinomyces. / B. Tonsil, left, excision - tonsil weighing 3.9 grams, with reactive lymphoid hyperplasia and numerous Actinomyces. Andrea Salmon MD [id number] 7:15 AM CDT [facility] at 0715 CDT DIAGNOSIS COMMENT After review of the H&E stained slide(s) a p16 immunostain was done on block B1 due to the presence of a mildly abnormal epithelial focus. The p16 did not show definitive abnormal staining. The remainder of that tonsil was submitted for examination, and a few additional small foci of similar epithelium were seen. The features overall appear metaplastic in these foci rather than neoplastic. No malignancy is identified. 7:15 AM CDT [facility] GROSS DESCRIPTION A. Received in formalin labeled Adriel -right tonsil is a tonsil measuring 3.2 x 2.3 x 1.3 cm and weighing 4.2 g. The mucosa surface is carter-pink and cerebriform. The specimen is serially sectioned to reveal typical crypt architecture with mild hemorrhage and multiple yellow, friable tonsil stones identified. A traveling representative section is submitted in A1. B. Received in formalin labeled Shandaken -left tonsil is a tonsil measuring 3.3 x 1.5 x 1.5 cm and weighing 3.9 g. The mucosa surface is carter-pink and cerebriform. The specimen is serially sectioned to reveal typical crypt architecture with multiple yellow, friable tonsil stones identified. A traveling representative section is submitted in B1. The remainder of the specimen is submitted in B2-B7. Grossed by: Christine Butcher MS, PA ([facility])CM 5 7:15 AM T [facility] OPERATIVE PROCEDURE 1: UVULOPHARYNGOPALATOPLAST Y 7:15 AM T [facility] CLINICAL INFORMATION G47.33-Obstructive sleep apnea J35.1-Tonsillar hypertrophy K13.79-Uvular hypertrophy 5 7:15 AM T [facility] COMMENT The M87 voice-activated dictation system may have been used in the creation of this report. Inherent to this system is the possibility of errors in syntax, grammar, punctuation, or other areas that could impact interpretation. If there are interpretive questions about the report, please contact the performing pathologist. Unless gross only is specified in the diagnosis, the microscopic examination substantiates the above cited diagnosis. The performance characteristics of all immunohistochemical stains cited in this report (if any) were determined by the Diagnostic Immunohistochemistry Laboratory of [facility] in compliance with CLIA'88 regulations. Some of these tests rely on the use of analyte specific reagents and are subject to specific labeling requirements by the FDA. All controls show appropriate reactivity. This testing was developed by the Diagnostic Immunohistochemistry Laboratory of [facility]. It has not been cleared or approved by the FDA. The FDA has determined that such clearance or approval is not necessary. 7:15 AM T [facility] Tissue (Tonsil, right) Collection / Unknown 06/13/2025 7:54 AM CDT 06/13/2025 11:08 AM CDT Tissue specimen (specimen) (Tonsil, left) Collection / Unknown 06/13/2025 7:54 AM CDT 06/13/2025 11:08 AM CDT Maribell Aviles DO PATHOLOGY/CYTOLOGY ORDERABLES Final Result Performing Organization Address City/State/[facility] Co de Phone Number [facility] CLIA # [id number] [address] [place] [address] * EKG 12-LEAD (06/13/2025 7:10 AM CDT) 06/13/2025 7:10 AM CDT Narrative INTERFACE SYSTEM - 06/13/2025 6:29 PM CDT [address] [address] Test Date: 2025-06-13 Pat Name: GAGANDEEP MOREL Department: 12 Room: PREOP PHAS PREOP PHAS Gender: Male Director Of Collections: [id number] : 1985 Requested By: Order Number: [id number] Reading MD: Carol Reyes Measurements Intervals [place] Rate: 102 P: 38 ME: 146 QRS: 22 QRSD: 84 T: -16 QT: 344 QTc: 448 Interpretive Statements Sinus tachycardia Otherwise normal ECG Electronically Signed On 06-13-2025 18:29:59 CDT by Carol Reyes Procedure Note Carol Reyes, - 06/13/[address] [address] Test Date: 2025-06-13 Pat Name: GAGANDEEP MOREL Department: 12 Room: PREOP PHAS PREOP PHAS Gender: Male Director Of Collections: [id number] : 1985 Requested By: Order Number: [id number] Reading MD: Carol Reyes Measurements Intervals [place] Rate: 102 P: 38 ME: 146 QRS: 22 QRSD: 84 T: -16 QT: 344 QTc: 448 Interpretive Statements Sinus tachycardia Otherwise normal ECG Electronically Signed On 06-13-2025 18:29:59 CDT by Carol Reyes Maribell Aviles ECG ORDERABLES Final Result INTERFACE SYSTEM Refer to clinic/hospital department * (ABNORMAL) BASIC METABOLIC PANEL (06/13/2025 6:55 AM CDT) SODIUM 140 136 - 145 mmol/L 06/13/2025 7:42 AM T [facility] POTASSIUM 4.4 3.5 - 5.1 mmol/L 06/13/2025 7:42 AM [facility] Comment:Moderate hemolysis p resent. Can cause significant falsely elevated result. Redraw if indicated. CHLORIDE 104 98 - 107 mmol/L 06/13/2025 7:42 AM [facility] CO2 24 22 - 29 mmol/L 06/13/2025 7:42 AM [facility] CALCIUM 9.1 8.6 - 10.0 mg/dL 06/13/2025 7:42 AM [facility] BUN 11 6 - 20 mg/dL 06/13/2025 7:42 AM [facility] CREATININE 1.02 0.67 - 1.17 mg/dL 06/13/2025 7:42 AM [facility] GLUCOSE 105(H) 74 - 99 mg/dL 06/13/2025 7:42 AM [facility] GFR >60 >=60 mL/min/1.7 3 sq meter 06/13/2025 7:42 AM [facility] Comment:eGFR calculated with 2020 CKD-EPI equation. Vegetarian diet, extremely high or low muscle mass, and may affect results. Cystatin C with Glomerular Filtration Rate is a suitable alternative for these patients. ANION GAP 12 9 - 20 mmol/L 06/13/2025 7:42 AM [facility] Blood Venipuncture / Unknown 06/13/2025 6:55 AM CDT 06/13/2025 6:59 AM CDT Maribell Aviles DO CHEMISTRY ORDERABLES Final Res ult [facility] CLIA # [id number] [address] [facility] [place] [address] * (ABNORMAL) MICROALBUMIN/CREATININE RATIO, RANDOM UR (02/23/2025 3:15 PM CDT) CREATININE, URINE 468(H) 20 - 320 mg/dL [facility] Comment: Verified by repeat analysis. ALBUMIN, URINE 12.1 See Note: mg/dL [facility] Comment: Reference Range: Reference Range Not established ALB/CREAT RATIO, URINE 26 <30 mg/g creat [facility] Comment: The ADA defines abnormalities in [...] category. FASTING:UNKNOWN FASTING: UNKNOWN Test Performed at: [facility] [address] [place] [address] Tristan York MD Urine URINE SPECIMEN OBTAINED BY CLEAN CATCH PROCEDURE / Unknown 02/23/2025 3:15 PM CDT 02/24/2025 2:08 AM CDT us David Sawant SENIOR HEALTH PHYSICS TECHNICIAN URINE ORDERABLES Final Res ult [facility] [phone] [place], [place] [address] [address] * HEMOGLOBIN A1C (02/23/2025 12:08 PM CDT) HEMOGLOBIN A1C 5.4 <5.7 % [facility] Comment: For the purpose of screening for the presence of diabetes: <5.7% Consistent with the absence of diabetes 5.7-6.4% Consistent with increased risk for diabetes (prediabetes) > or =6.5% Consistent with diabetes This assay result is consistent with a decreased risk of diabetes. Currently, no consensus exists regarding use of hemoglobin A1c for diagnosis of diabetes in children. According to [place] Diabetes Association (ADA) guidelines, hemoglobin A1c <7.0% represents optimal control in non- diabetic patients. Different metrics may apply to specific patient populations. Standards of Medical Care in Diabetes(ADA). ESTIMATED AVERAGE GLUCOSE (MG/DL) 108 mg/dL [facility] ESTIMATED AVERAGE GLUCOSE (MMOL/L) 6.0 mmol/L [facility] Comment: FASTING:UNKNOWN FASTING: UNKNOWN Test Performed at: [facility] [address] [address] Tristan York MD Blood 02/23/2025 12:0 8 PM CDT 02/23/2025 12:08 PM CDT David Sawant SENIOR HEALTH PHYSICS TECHNICIAN CHEMISTRY ORDERABLES Final Result [facility] [phone] [place] [address] [place] [address] * (ABNORMAL) LIPID PANEL (02/23/2025 12:08 PM CDT) CHOLESTEROL 195 <200 mg/dL [facility] HDL 35(L) > OR = 40 mg/dL [facility] TRIGLYCERIDE 82 <150 mg/dL [facility] LDL CALCULATED 141(H) mg/dL (calc) [facility] Comment: Reference range: <100 Desirable range <100 mg/dL for primary prevention; <70 mg/dL for patients with CHD or diabetic patients with > or = 2 CHD risk factors. LDL-C is now calculated using the Teodoro calculation, which is a validated novel method providing better accuracy than the Friedewald equation in the estimation of LDL-C. Stefan SS et al. ARTHUR. 2013;310(19): 4969-7255 (http://education.[facility].com/faq/QCK938) CHOL/HDL RATIO 5.6(H) <5.0 (calc) [facility] NON-HDL CHOLESTEROL 160(H) <130 mg/dL (calc) [facility] Comment: For patients with diabetes plus 1 major ASCVD risk factor, treating to a non-HDL-C goal of <100 mg/dL (LDL-C of <70 mg/dL) is considered a therapeutic option. Test Performed at: [facility] [address] [facility] [place] [address] Tristan York MD Blood 02/23/2025 12:0 8 PM CDT 02/23/2025 12:08 PM CDT Jaspervaleriaany Sawant SENIOR HEALTH PHYSICS TECHNICIAN CHEMISTRY ORDERABLES Final Result [facility] [phone] [facility] [id number] [place] [phone] from Last 3 Months or Most Recently Relevant to Health Maintenance Insurance shoutr [facility] [id number] RX [employer] Member Subscriber Plan / Payer (Ef fective 2025-Present) Name:Gagandeep Morel Relation to Subscriber:Self Name:Gagandeep Morel Subscriber ID:Not on file Payer ID:Not on file Group ID:[id number] Type:RX Commercial Address: [address] Advance Directives For more information, please contact: [phone] * Full Code (Latest Code Status on File) Date Activated Date Inactivated Comments 06/13/2025 8:22 AM 06/14/2025 2:56 PM Care Teams Cutting Table Operator First Relationship Specialty Start Date End Date Snehal Villa DO [address] [phone] PCP - General Family Practice 02/09/24
--- OUTSIDE RECORDS SUMMARY | 2025-06-22 21:07 | XMS_ITS | Encounter Summary ---
Author Organization [facility] Address [address] [place] [address] Care Team Providers Care Software Quality Assurance Specialist Name Role Phone Snehal Villa Primary Care Provider [phone] Reason for Visit * Reason Onset Date Comments Results 06/19/2025 Patient Communication Encounter Details Date Type Department Care Team (Latest Contact Info) Description 06/19/2025 Results Follow-Up [facility] Medicine [place] [address] [place] [address] CunninghamJanuary, [facility] [address] [place] [address] COMPREHENSIVE METABOLIC PANEL, CBC WITH DIFFERENTIAL Social History Tobacco Use Types Packs/Day Years [...] on file documented as of this encounter Miscellaneous Notes * Telephone Encounter - Margot Peralta LPN - 06/20/2025 9:06 AM CDT 06/20/2025 9:06 AM I spoke with pt and let him know we would recheck his WBC on Thursday at his appointment. Pt verbalized understanding. Margot VICTORIA * Telephone Encounter - Margot Peralta LPN - 06/20/2025 9:06 AM CDT ----- Message from January Marisa sent at 06/20/2025 7:59 AM CDT ----- Let him know we will recheck WBC count on Thursday. ----- Message ----- From: Margot Peralta LPN Sent: 06/19/2025 3:26 PM CDT To: JOE Richardson ----- Message from Margot Peralta LPN sent at 06/19/2025 3:26 PM CDT ----- ----- Message ----- From: Awilda Alexander Sent: 06/19/2025 10:38 AM CDT To: [facility] [place] Nurse * Telephone Encounter - Margot Peralta LPN - 06/19/2025 3:23 PM CDT 06/19/2025 3:23 PM Called and notified patient of results. Voiced understanding. Pt says no fever just chills on occ. Reports highest temp was 99. Pt says he has not been eating much in the last few days. Pt says it's painful to eat. Margot VICTORIA * Telephone Encounter - Awilda Alexander - 06/19/2025 10:38 AM CDT Copied from [facility] #[id number]. Topic: CPA Information Request >> Jun 19, 2025 10:37 AM Awilda Rivers wrote: Caller is returning phone call from clinic. Caller Name: Gagandeep Morel Patient/Caregiver Callback Number: Telephone Information: Clinic Left Note In Chart Is there a note from the clinic requesting the caller be transferred when they call back? No Are the credentials of the caregiver who called the patient theatrical dresser? Yes Call Notes: Communicated information that is documented in the note. Caller wants a call back from clinic. * Telephone Encounter - Margot Peralta LPN - 06/19/2025 9:44 AM CDT 06/19/2025 9:44 AM No answer. Left voice mail/message that patient/caregiver can return our call. If patient/caregivercalls back, contact center please inform caller to expect a return call from the clinic. Margot VICTORIA * Telephone Encounter - Margot Peralta LPN - 06/19/2025 9:43 AM CDT ----- Message from Marilia Cunningham sent at 06/19/2025 9:05 AM CDT ----- Please call Gagandeep and let him know his WBC count is slightly elevated. Find out how he is feeling any fever or chills. Also let him know that his potassium is low. I sent him in potassium to take for 10 days. We will recheck his potassium after 10 days. ----- Message ----- From: Nehemiah Huang Incoming [facility] Results Sent: 06/17/2025 8:13 AM CDT To: JOE Richardson documented in this encounter Plan of Treatment Upcoming Encounters Date Type Department Care Team (Late st Contact Info) Description 06/23/2025 3:00 PM CDT Office Visit [facility] [address] [place] [address] CunninghamJanuary, SEATING UPHOLSTERER [address] [place] [phone] 09/14/2025 8:30 AM DIGITAL DESIGN ENGINEER Office Visit [facility] [address] [place] [address] Maribell Aviles DO [address] [place] [address] Scheduled Orders Name Type Priority Associated Diagnoses Orde r Schedule POTASSIUM LEVEL Lab Routine Hypokalemia Expected: 06/29/2025, Expires: 06/19/2026 documented as of this encounter Visit Diagnoses Diagnosis Hypokalemia- Primary Hypopotassemia documented in this encounter Additional Health Concerns Assessment Noted Time PHQ-9 Depression Total Score: 6 02/24/20 25 11:31 AM CDT documented as of this encounter Care Teams Software Quality Assurance Specialist Relationship Specialty Start Date End Date Snehal Villa DO [address] [place] [phone] PCP - General Family Practice 02/09/24 documented as of this encounter
--- OUTSIDE RECORDS SUMMARY | 2025-06-22 21:07 | XMS_ITS | Encounter Summary ---
Author Organization [facility] Address [address] [place] [address] Care Team Providers Care Logging Crew Supervisor Name Role Phone Snehal Villa Primary Care Provider Encounter Details Date Type Department Care Team (Late st Contact Info) Description 06/20/2025 External Device Data ST[place] ABSTRACTION Provider, Abstract NO ADDRESS ON FILE Social History Tobacco Use Types Packs/Day Years [...] on file documented as of this encounter Plan of Treatment Upcoming Encounters Date Type Department Care Team (Late st Contact Info) Description 06/23/2025 3:00 PM CDT Office Visit [facility] Medicine [place] [address] [facility] [place] [phone] January, BURN OUT SCARFING OPERATOR [address] [place] [place] [phone] 09/14/2025 8:30 AM PEDIATRIC NEPHROLOGIST Office Visit [facility] Ear, N[facility] and Throat [address] [place] [address] Maribell Aviles DO [address] [place] [phone] documented as of this encounter Visit Diagnoses Not on filedocumented in this encounter Additional Health Concerns Assessment Noted Time PHQ-9 Depression Total Score: 6 02/24/20 25 11:31 AM CDT documented as of this encounter Care Teams Logging Crew Supervisor Relationship Specialty Start Date End Date Snehal Villa DO [address] [place] [phone] PCP - General Family Practice 02/09/24 documented as of this encounter
--- OUTSIDE RECORDS SUMMARY | 2025-06-22 21:07 | XMS_ITS | Encounter Summary ---
Author Organization [facility] Address [address] [place] [address] Care Team Providers Care Pharmacy Affairs Assistant Name Role Phone Daisy Snehal Carol PADILLA Primary Care Provider [phone] Reason for Visit * Reason Onset Date Comments Primary Care Outreach 06/22/2025 Calling to see if pt has heard from [facility] in regards to scheduling his stress test Heidi Reid, 06/22/2025 2:15 PM Encounter Details Date Type Department Care Team (Late st Contact Info) Description 06/22/2025 Telephone [facility] Medicine [place] [address] [place] [address] David Sawant DEFENCE INTELLIGENCE ANALYST [address] [place] [address] Primary Care Outreach (Calling to see if pt has heard from [facility] in regards to scheduling his stress test Heidi Reid, 06/22/2025 2:15 PM///) Social History Tobacco Use Types Packs/Day Years [...] encounter Miscellaneous Notes * Telephone Encounter - Heidi Reid - 06/22/2025 2:15 PM CDT Calling to see if pt has heard from [facility] in regards to scheduling his stress test Heidi Reid, 06/22/2025 2:15 PM documented in this encounter Plan of Treatment Upcoming Encounters Date Type Department Care Team (Late st Contact Info) Description 06/23/2025 3:00 PM CDT Office Visit [facility] Family Medicine [place] [address] [place] [phone] Cunninghamjanuary, DEFENCE INTELLIGENCE ANALYST [address] [place] [address] 09/14/2025 8:30 AM DEBLOCKER Office Visit [facility] Ear, Nose and Throat [address] [place] [phone] Maribell Aviles DO [address] [place] [address] documented as of this encounter Visit Diagnoses Not on filedocumented in this encounter Additional Health Concerns Assessment Noted Time PHQ-9 Depression Total Score: 6 02/24/20 25 11:31 AM CDT documented as of this encounter Care Teams Pharmacy Affairs Assistant Relationship Specialty Start Date End Date Snehal Villa DO [address] [place] [phone] PCP - General Family Practice 02/09/24 documented as of this encounter
[2025-06-22 22:02] LABS: Hematocrit 46.7 % (37-53); Hemoglobin 16.30 g/dL (11.27-16.99); Mean Corpuscular HGB Conc 34.9 g/dL (30-55); Mean Corpuscular Hemoglobin 28.6 pg (27-33); Mean Corpuscular Volume 81.9 fl (82-101); Nucleated Red Blood Cells % 0 %; Platelet Count 318 10^3/cmm (157-399); Red Blood Count 5.70 10^6/uL (3.85-5.65); White Blood Count 9.91 10^3/uL (3.29-11.43)
[2025-06-22] MEDS: tranexamic acid 1,000 MG/100 ML PREMIX 600 MG IV (22:02)
[2025-06-22 22:04] VITALS: BP 129/78; O2SAT 96
[2025-06-22 22:11] LABS: INR 1.12 (0.8-1.2); Prothrombin Time 15.20 SECONDS (12.1-14.9)
[2025-06-22 22:12] LABS: Partial Thromboplastin Time 35.7 SECONDS (23.9-36.7)
[2025-06-22 22:16] LABS: Alanine Aminotransferase 29 U/L (0-41); Albumin Level 4.3 g/dL (3.5-5.2); Alkaline Phosphatase 79 U/L (40-130); Anion Gap 20.3 (5-19); Aspartate Amino Transferase 18 U/L (0-40); Blood Urea Nitrogen 14 mg/dL (6-20); Calcium 9.6 mg/dL (8.5-10.5); Carbon Dioxide 21 mmol/L (22-29); Chloride 98 mmol/L (98-107); Creatinine Clr Calc Pharmacy 149.3466; Globulin 3.6 g/dL (1.3-4.6); Glucose 141 mg/dL (65-115); Osmolality Calculated 285 mOsm/kg (285-295); Potassium 3.3 mmol/L (3.5-5.1); Sodium 136 mmol/L (136-145); Total Protein 7.9 g/dL (6.6-8.7)
--- NOTE | 2025-06-22 22:37 | ED_ITS ---
HPI - General Adult 2 General: Chief complaint: Airway/Esophagus Foreign Body Stated complaint: Bleeding from a tonsilectomy Time Seen by Provider: 06/22/25 21:04 Source: patient Mode of arrival: ambulatory Limitations: no limitations History of Present Illness: This patient is a 40-year-old male who presents emergency department complaining of mouth bleeding intermittently for 9 days but constant today. States he had a tonsillectomy done at [facility] with Dr. Aviles, and the bleeding was intermittent but today suddenly worsened and he is spitting up clots. No pain, and no trouble breathing or sense of throat closure. He is tachycardic but afebrile at time of examination. Has not followed up since the surgery. No chest pain or shortness of breath, no abdominal pain, no vomiting. MD complaint: Mouth bleeding Onset (ago): day(s) (9) Location: mouth Associated symptoms: Deny chest pain, dyspnea, headache(s), nausea, rash, palpitations or vomiting Related Data Allergies Allergy/AdvReac Type Severity Reaction Status Date / Time No Known Allergies Allergy Verified 05/13/25 23:40 Review of Systems 2 General: Reports: 10 or more systems reviewed and unremarkable except in HPI and below Const: Denies: fever(s), chills or fatigue Eyes: Denies: change in vision ENMT: Reports: other (Mouth bleeding); Denies: throat pain, ear or mastoid pain or nasal discharge Card: Denies: chest pain, palpitations, swelling of feet/ankles or lightheadedness Resp: Denies: dyspnea, productive cough or wheezing GI: Denies: abdominal pain, nausea, vomiting, diarrhea or constipation : Denies: flank pain, difficulty urinating, dysuria or urinary frequency Musc: Denies: neck pain, back pain or joint pain Skin/Breast: Denies: rash Neuro: Denies: headache(s), numbness in extremities or weakness in extremities Physical Exam 2 Const: COMMON NORMALS: no acute distress, patient oriented x3 and no limitations GENERAL APPEARANCE: cooperative, comfortable and well developed ORIENTATION/CONSCIOUSNESS: Yes awake, Yes oriented to person, Yes oriented to place and Yes oriented to time HENMT: COMMON NORMALS: normocephalic, atraumatic and hearing grossly normal bilaterally HEAD & SCALP: normocephalic and atraumatic OTHER: Large clot to right peritonsillar region, actively spitting up blood Eye: COMMON NORMALS: Equal, round and reactive pupils present, EOMs intact bilaterally and conjunctivae normal CONJUNCTIVA: Yes conjunctivae normal P UPIL: Yes Equal, round and reactive pupils present Neck/C-Spine: COMMON NORMALS: full ROM, supple and no JVD Resp: COMMON NORMALS: normal respiratory effort, No retractions, No use of accessory muscles and clear to auscultation bilaterally AUSCULTATION: clear to auscultation bilaterally Cardio: COMMON NORMALS: no JVD, regular rate, regular rhythm, No clicks present (Cardio), No murmurs present (Cardio) and No rub (Cardio) RATE: r egular rate RHYTHM: regular rhythm GI: COMMON NORMALS: Normal to inspection, nondistended, normoactive bowel sounds present, Soft to palpation and non-tender AUSCULTATION: Yes normoactive bowel sounds PALPATION: Yes Soft to palpation RECTAL EXAM: Yes deferred Extremity: COMMON NORMALS: normal to inspection, full ROM and capillary refill normal Neuro: COMMON NORMALS: patient oriented x3, moves all extremities, no focal motor deficits and no sensory deficits noted SENSORIUM/ORIENTATION: Yes oriented to person, Yes oriented to place and Yes oriented to time Skin: COMMON NORMALS: no rashes or lesions noted GENERAL SKIN EXAM: no rashes or lesions noted Course 2 Vital Signs: Vital signs: Vital Signs Temperature 98.4 F 06/22/25 21:04 Pulse Rate 80 06/22/25 23:52 Respiratory Rate 16 06/22/25 23:52 Blood Pressure 119/77 06/22/25 23:52 Pulse Oximetry 94 06/22/25 23:52 Oxygen Delivery Me thod Room Air 06/22/25 22:39 MDM - General Adult Medical Decision Making Patient is 9 days postop from tonsillectomy which she had at [facility], today states that was spit up blood and that despite a few episodes of this today's episode was unable to be controlled. Actively spitting up blood at time of exam, and there is a large clot to right peritonsillar region that later in ED visit he spits up. Bleeding has overall been very minor and eventually ceases after he receives IV tranexamic acid. Labs obtained, hemoglobin is normal, and I have no concern for abscess, infectious etiology, or any impending respiratory issue. No significant edema on exam. I spoke with ENT at [facility], nurse practitioner on- call, who is stating that he is in a timeframe where likely he had a scapula off and this was to be worsening of bleeding, but being that it is no longer bleeding at this time can follow-up in the office tomorrow. I discussed this plan with the patient, he agrees and symptoms have been controlled overall. He will be discharged home at this time. Lab Data 06/22/25 21:54 06/22/25 21:54 Laboratory Results WBC 9.91 10^3/uL (3.29-11.43) 06/22/25 21:54 RBC 5.70 10^6/uL (3.85-5.65) H 06/22/25 21:54 Hgb 16.30 g/dL (11.27-16.99) 06/22/25 21:54 Hct 46.7 % (37-53) 06/22/25 21:54 MCV 81.9 fl (82-101) L 06/22/25 21:54 MCH 28.6 pg (27-33) 06/22/25 21:54 MCHC 34.9 g/dL (30-55) 06/22/25 21:54 RDW 12.4 % (12.1-15.1) 06/22/25 21:54 Plt Count 318 10^3/cmm (157-399) 06/22/25 21:54 MPV 10.7 fL (7.4-10.4) H 06/22/25 21:54 Neut % (Auto) 64.0 % 06/22/25 21:54 Lymph % (Auto) 24.7 % 06/22/25 21:54 Young % (Auto) 8.4 % 06/22/25 21:54 Eos % (Auto) 1.9 % 06/22/25 21:54 Baso % (Auto) 0.8 % 06/22/25 21:54 Neut # (Auto) 6.34 10^3/uL (1.8-7.7) 06/22/25 21:54 Lymph # (Auto) 2.5 10^3/uL (0.8-4.8) 06/22/25 21:54 Young # (Auto) 0.8 10^3/uL (0.2-0.9) 06/22/25 21:54 Eos # (Auto) 0.2 10^3/uL (0.0-0.8) 06/22/25 21:54 Baso # (Auto) 0.1 10^3/uL (0.0-0.1) 06/22/25 21:54 Nucleated RBC % (auto) 0 % 06/22/25 21:54 Nucleated RBCs # 0.0 /100WBC 06/22/25 21:54 PT 15.20 SECONDS (12.1-14.9) H 06/22/25 21:54 INR 1.12 (0.8-1.2) 06/22/25 21:54 APTT 35.7 SECONDS (23.9-36.7) 06/22/25 21:54 Sodium 136 mmol/L (136-145) 06/22/25 21:54 Potassium 3.3 mmol/L (3.5-5.1) L 06/22/25 21:54 Chloride 98 mmol/L (98-107) 06/22/25 21:54 Carbon Dioxide 21 mmol/L (22-29) L 06/22/25 21:54 Anion Gap 20.3 (5-19) H 06/22/25 21:54 BUN 14 mg/dL (6-20) 06/22/25 21:54 Creatinine 0.8 mg/dL (0.7-1.2) 06/22/25 21:54 GFR Calculation 106.0 mL/min (90-130) 06/22/25 21:54 Glucose 141 mg/dL (65-115) H 06/22/25 21:54 Calculated Osmolality 285 mOsm/kg (285-295) 06/22/25 21:54 Calcium 9.6 mg/dL (8.5-10.5) 06/22/25 21:54 Total Bilirubin 0.5 mg/dL (0.15-1.2) 06/22/25 21:54 AST 18 U/L (0-40) 06/22/25 21:54 ALT 29 U/L (0-41) 06/22/25 21:54 Alkaline Phosphatase 79 U/L (40-130) 06/22/25 21:54 Total Protein 7.9 g/dL (6.6-8.7) 06/22/25 21:54 Albumin 4.3 g/dL (3.5-5.2) 06/22/25 21:54 Globulin 3.6 g/dL (1.3-4.6) 06/22/25 21:54 Blood Type O Negative 06/22/25 22:10 Rho(D) Type Rh negative 06/22/25 22:10 Antibody Screen Negative 06/22/25 22:10 No radiology studies performed this visit Discharge Plan Discharge Patient Disposition: Home Clinical Impression: Tonsillar bleed Condition: Stable Discharge Orders: Discharge ED (Routine); Ordered 06/22/25 Ordered By: Eriberto Martinez Referrals: David Sawant FNP [Primary Care Provider] Patient Instructions: Patient Portal & Jenna Instructions Activity Restrictions/Additional Instructions: Post-Tonsil Bleed Discharge Discharge Instructions: Postoperative Tonsillar Bleeding Managed with IV Tranexamic Acid Diagnosis: Postoperative tonsillar hemorrhage, controlled in the ED with intravenous tranexamic acid (TXA). Summary of ED Course: - Patient presented with active post-tonsillectomy bleeding. - Hemostasis achieved following administration of intravenous TXA. - No adverse events noted during or after TXA administration. - Otolaryngology consulted; outpatient follow-up arranged for next day if bleeding persists. Evidence-Based Rationale: TXA is a synthetic antifibrinolytic agent that has demonstrated efficacy in reducing the need for operative intervention in post-tonsillectomy hemorrhage, with a favorable safety profile and no significant adverse events reported in adult and pediatric cohorts.[1] https://pubmed.ncbi.nlm.nih.gov/90887583 [2] https://pubmed.ncbi.nlm.nih.gov/24552771 [3] https:/ /pubmed.ncbi.nlm.nih.gov/76356879 [4] https://pubmed.ncbi.nlm.nih.gov/39014710 While not yet standard in clinical guidelines, TXA is increasingly utilized as a non-invasive adjunct in the acute management of post-tonsillectomy bleeding. Discharge Instructions: - Observation: The patient is clinically stable with no ongoing active bleeding at time of discharge. - Activity: Advise rest and avoidance of strenuous activity for 24-48 hours. - Diet: Recommend a soft, cool diet (e.g., ice chips, popsicles, yogurt) to minimize trauma to the tonsillar fossae. Avoid hot, spicy, or abrasive foods. - Oral Care: Gentle oral hygiene only; avoid gargling or vigorous rinsing. - Medications: No further TXA prescribed at discharge. Analgesia as needed with acetaminophen; avoid NSAIDs due to potential platelet dysfunction. - Signs/Symptoms Warranting Immediate Return: - Recurrent or persistent oral bleeding (any fresh blood, not just blood-tinged saliva) - Hematemesis or melena - Signs of hypovolemia (dizziness, tachycardia, hypotension, pallor) - Difficulty breathing or airway compromise - Inability to tolerate oral intake due to pain or bleeding Follow-Up: - Otolaryngology outpatient follow-up scheduled for next day if bleeding recurs or persists. - If no further bleeding, routine post-tonsillectomy follow-up per standard protocol. Patient Education: - Business Intelligence Reporting Analyst patient and caregivers regarding the risk of delayed post- tonsillectomy hemorrhage, which may occur up to 2 weeks postoperatively. - Reinforce the importance of prompt return to the ED for any significant bleeding or concerning symptoms. Special Considerations: - No evidence of coagulopathy or contraindication to TXA. - No adverse events attributable to TXA during ED course. - No indication for hospital admission or transfer at this time. References: - TXA has demonstrated efficacy in reducing the need for operative intervention in post-tonsillectomy hemorrhage and is safe for use in this context.[1] https://pubmed.ncbi.nlm.nih.gov/00670106 [2] https://pubmed.ncbi.nlm.nih.gov/88042643 [3] https:/ /pubmed.ncbi.nlm.nih.gov/43408762 [4] https://pubmed.ncbi.nlm.nih.gov/11381206 References * Efficacy of Tranexamic Acid (TXA) for Post-Tonsillectomy Hemorrhage https://pubmed.ncbi.nlm.nih.gov/54409375 . Ruel Hill, Olive Reveles, Duc W, Isaiah Tse, Reyna Thompson. [place] Journal of Otolaryngology. 2021- Jul;43(5):073981. doi:10.1016/j.amjoto.202.866865. * Treatment of Post-Tonsillectomy Hemorrhage With Nebulized Tranexamic Acid: Initial Investigation of a Novel Therapeutic Modality https://pubmed.ncbi.nlm.nih.gov/23655587 . Kaelyn Reveles, Juan Reveles, Zhane M, Taylor M, Marivel W. The Annals of Otology, Rhinology, and Laryngology. 2023;133(8):729-734. doi:10.1177/71240284206273431. * The Efficacy of Tranexamic Acid Administration in Patients Undergoing Tonsillectomy: An Updated [place]-Analysis https://pubmed.ncbi.nlm.nih.gov/33413735 . Antonio CC, Heriberto MELLY, Precious MM. The Annals of Otology, Rhinology, and Laryngology. 2021;131(8):834-843. doi:10.1177/50932372877914850. * The Utility and Safety of Prophylactic Tranexamic Acid in Tonsillectomy: A Systematic Review and [place]-Analysis https://pubmed.ncbi.nlm.nih.gov/90798278 . Domitila Parish. Otolaryngology--Head and Neck Surgery : Official Journal of [place] Academy of Otolaryngology-Head and Neck Surgery. 2024;172(1):36-49. doi:10.1002/ohn.973. Print Language: Vietnamese Coding Level of Care Code ED Motor Racer for Samuel Spencer
[2025-06-22 22:39] VITALS: BP 117/79; O2SAT 93
[2025-06-22 23:25] VITALS: RESP 18
[2025-06-22] MEDS: ondansetron 2 mg/ML SDV 2 mL 4 MG IVP (23:25)
[2025-06-22] MEDS: morphine 4 mg/mL SDV 1 mL IVP (23:25)
[2025-06-22 23:52] VITALS: BP 119/77; PULSE 80; RESP 16; O2SAT 94
== END 2025-06-22 23:53 | disposition home or self-care (01) ==
PROVIDERS: Emergency Provider Physician Assistant; PCP Nurse Practitioner Family
DX: J95.830 Postprocedural hemorrhage of a respiratory system organ or structure following a respiratory system procedure (principal)
CPT/HCPCS: 36415; 80053; 85025; 85610; 85730; 86850; 86900; 96374; 96375; 99284; J2270; J2405; J7030; J9999